=== PATIENT | female | born 1945 | race Caucasian/White ===

== ENCOUNTER 2017-06-20 17:48 | Inpatient (IN) | payer MEDICARE, OTHER ==
[~2017-06-20] VITALS: Ht 154.9 cm; Wt 84.4 kg
[2017-06-20 18:13] LABS: BASOPHILS # (AUTO) 0.1 /CMM (0.0-0.2); BASOPHILS % (AUTO) 0.8 % (0.0-2.0); EOSINOPHILS # (AUTO) 0.2 /CMM (0.0-0.7); EOSINOPHILS % (AUTO) 2.8 % (0.0-6.0); HEMATOCRIT 42 % (33-45); HEMOGLOBIN 14.1 g/dL (11.5-14.8); LYMPHOCYTES # (AUTO) 3.6 /CMM (0.8-4.8); LYMPHOCYTES % (AUTO) 40.8 % (20.0-44.0); MEAN CORPUSCULAR HEMOGLOBIN 31 PG (26.0-33.0); MEAN CORPUSCULAR HGB CONC 34 g/dl (31.0-36.0); MEAN CORPUSCULAR VOLUME 91 fL (82-100); MONOCYTES # (AUTO) 0.5 /CMM (0.1-1.30); MONOCYTES % (AUTO) 5.3 % (2.0-12.0); NEUTROPHILS # (AUTO) 4.3 /CMM (1.8-8.9); NEUTROPHILS % (AUTO) 50.3 % (43.0-81.0); PLATELET COUNT (AUTO) 325 /CMM (150-450); RDW COEFFICIENT OF VARIATION 12.6 (11.5-15.0); RED BLOOD CELL COUNT(AUTO) 4.58 MIL/uL (4.0-5.2); WHITE BLOOD COUNT (AUTO) 8.7 K/uL (4.3-11.0)
[2017-06-20] MEDS ORDERED: NITROGLYCERIN 0.4 MG/TAB BOTTLE ONE (18:18)
[2017-06-20 18:23] LABS: CALCIUM, SERUM 9.1 mg/dL (8.5-10.1); CARBON DIOXIDE 28 mmol/L (21-32); CHLORIDE 102 mmol/L (98-107); GLUCOSE 90 mg/dL (74-106); SODIUM SERUM 135 mmol/L (136-145); UREA NITROGEN, BLOOD 19 mg/dL (7-18)
[2017-06-20 18:27] LABS: INR 0.91 (0.87-1.13); PROTHROMBIN TIME 9.5 SECS (9.5-12.7)
[2017-06-20] MEDS ORDERED: TEMA7.5C PO (18:29)
[2017-06-20] MEDS ORDERED: SUMA100T16 PO (18:29)
[2017-06-20] MEDS ORDERED: LEVO50TA8 PO (18:29)
[2017-06-20] MEDS ORDERED: LORA0.5T PO (18:29)
[2017-06-20] MEDS ORDERED: VALS1TAB4 PO (18:29)
[2017-06-20] MEDS ORDERED: FURO20TA4 PO (18:29)
[2017-06-20] MEDS ORDERED: POTA8TAB3 PO (18:29)
[2017-06-20] MEDS ORDERED: NITROGLYCERIN 0.4 MG/TAB BOTTLE SL ONE (18:30)
[2017-06-20 18:32] LABS: TROPONIN I < 0.017 ng/mL (0.00-0.056)
[2017-06-20] MEDS ORDERED: IV NS 0.9% 1,000 ML IV PRN (19:34)
[2017-06-20] MEDS ORDERED: IOHEXOL-350 100 ML VIAL IV ONE (19:45)
[2017-06-20] MEDS ORDERED: IV NS 0.9% 250 ML IV ONE (19:45)
[2017-06-20] MEDS ORDERED: MORPHINE SULFATE INJ 2 MG/ML DISP.SYRIN IV PRN (20:00)
[2017-06-20] MEDS ORDERED: ACETAMINOPHEN 325 MG TABLET PO PRN (20:00)
[2017-06-20] MEDS ORDERED: ZOLPIDEM TARTRATE 5 MG TABLET PO PRN (20:00)
[2017-06-20] MEDS ORDERED: SUMATRIPTAN SUCCINATE 100 MG TABLET PO SCH (20:00)
[2017-06-20] MEDS ORDERED: LORAZEPAM 0.5 MG TABLET PO PRN (20:00)
[2017-06-20] MEDS ORDERED: MAG HYDROX/AL HYDROX/SIMETH 30 ML UDC PO PRN (20:00)
[2017-06-20] MEDS ORDERED: HYDROCODONE/APAP 5/325MG 1 EACH TABLET PO PRN (20:00)
[2017-06-20] MEDS ORDERED: TEMAZEPAM 7.5 MG CAPSULE PO PRN (20:00)
[2017-06-20] MEDS ORDERED: MAGNESIUM HYDROXIDE 30 ML UDC PO PRN (20:00)
[2017-06-20] MEDS ORDERED: Z GUARD REMEDY 2 OZ OINT TP PRN (20:00)
[2017-06-20] MEDS ORDERED: ONDANSETRON HCL/PF 4 MG/2 ML VIAL IVP PRN (20:00)
[2017-06-20] MEDS ORDERED: FUROSEMIDE 20 MG TABLET PO PRN (20:00)
[2017-06-20] MEDS ORDERED: FUROSEMIDE 20 MG TABLET PO SCH (20:18)
[2017-06-20] MEDS ORDERED: ENOXAPARIN SODIUM 40 MG/0.4 ML DISP.SYRIN SQ SCH (21:00)
[2017-06-20 22:45] VITALS: BP 141/93
[2017-06-21] VITALS: BP 137/79
[2017-06-21 04:00] VITALS: BP 139/77
[2017-06-21 06:48] LABS: IRON, SERUM 71 ug/dl (50-175); TOTAL IRON BINDING CAPACITY 262 ug/dl (250-450)
[2017-06-21 06:49] LABS: CALCIUM, SERUM 8.5 mg/dL (8.5-10.1); CARBON DIOXIDE 24 mmol/L (21-32); CHLORIDE 108 mmol/L (98-107); CREATININE 0.7 mg/dL (0.6-1.3); GLUCOSE 83 mg/dL (74-106); PHOSPHORUS 3.8 mg/dL (2.5-4.9); SODIUM SERUM 142 mmol/L (136-145); UREA NITROGEN, BLOOD 15 mg/dL (7-18)
[2017-06-21 06:51] LABS: CHOLESTEROL 228 mg/dL (<200); HDL CHOLESTEROL 62 mg/dL (40-60); LDL 136 mg/dL (0-99); THYROID STIMULATING HORMONE 2.958 uIU/mL (0.358-3.74); TRIGLYCERIDES 102 mg/dL (30-150)
[2017-06-21 07:10] LABS: BASOPHILS % (AUTO) 0.7 % (0.0-2.0); EOSINOPHILS # (AUTO) 0.2 /CMM (0.0-0.7); EOSINOPHILS % (AUTO) 2.6 % (0.0-6.0); HEMATOCRIT 39 % (33-45); LYMPHOCYTES # (AUTO) 3.2 /CMM (0.8-4.8); LYMPHOCYTES % (AUTO) 46.5 % (20.0-44.0); MEAN CORPUSCULAR HEMOGLOBIN 30 PG (26.0-33.0); MEAN CORPUSCULAR HGB CONC 34 g/dl (31.0-36.0); MEAN CORPUSCULAR VOLUME 91 fL (82-100); MONOCYTES # (AUTO) 0.5 /CMM (0.1-1.30); MONOCYTES % (AUTO) 6.9 % (2.0-12.0); NEUTROPHILS % (AUTO) 43.3 % (43.0-81.0); PLATELET COUNT (AUTO) 246 /CMM (150-450); RDW COEFFICIENT OF VARIATION 12.3 (11.5-15.0); RED BLOOD CELL COUNT(AUTO) 4.29 MIL/uL (4.0-5.2); WHITE BLOOD COUNT (AUTO) 6.9 K/uL (4.3-11.0)
[2017-06-21] MEDS: LEVOTHYROXINE SODIUM 50 MCG TABLET PO SCH ×2 (07:30→13:16)
[2017-06-21 08:00] VITALS: BP 145/103
[2017-06-21] MEDS: VALSARTAN 80 MG TABLET PO SCH ×2 (09:00→13:17)
[2017-06-21] MEDS: HYDROCHLOROTHIAZIDE 25 MG TABLET PO SCH ×2 (09:00→13:17)
[2017-06-21] MEDS ORDERED: REGADENOSON 0.4 MG/5 ML DISP.SYRIN IVP ONE (09:30)
[2017-06-21 10:33] LABS: THYROID STIMULATING HORMONE 2.893 uIU/mL (0.358-3.74)
[2017-06-21 16:00] VITALS: BP_SYST 125; BP_SYST 158; BP_DIAS 64; BP_DIAS 74
[2017-06-22] MEDS ORDERED: ASPIRIN 81 MG TAB.CHEW PO SCH (09:00)
== END 2017-06-21 18:50 | disposition home or self-care (01) | DRG 205 ==
LOC: ER 17:50 → TELE 19:54 → MED 06-21 10:15
PROVIDERS: ADMIT Internal Medicine; ATTEND Internal Medicine
DX: M94.0 Chondrocostal junction syndrome [Tietze] (principal); N17.0 Acute kidney failure with tubular necrosis; E88.81 Metabolic syndrome and other insulin resistance; E66.01 Morbid (severe) obesity due to excess calories; E03.9 Hypothyroidism, unspecified; N18.9 Chronic kidney disease, unspecified; E78.5 Hyperlipidemia, unspecified; K21.9 Gastro-esophageal reflux disease without esophagitis; G43.909 Migraine, unspecified, not intractable, without status migrainosus; Z68.35 Body mass index [BMI] 35.0-35.9, adult; I12.9 Hypertensive chronic kidney disease with stage 1 through stage 4 chronic kidney disease, or unspecified chronic kidney disease
CPT/HCPCS: 36415; 71010-TC; 80048-TC; 80061-TC; 82306; 82746; 83540-TC; 83735-TC; 84100-TC; 84439-TC; 84443-TC; 84484-TC; 85025-TC; 85730-TC; 87081-TC; 93307-TC; A4606; A9502; J1650; J2785; J7030; J7050; Q9967; Z7610